=== PATIENT | male | born 2005 | race Caucasian/White ===

== ENCOUNTER 2025-03-18 14:18 | Emergency (ER) | payer OTHER ==
[2025-03-18 14:28] VITALS: BP 115/75; PULSE 61
[2025-03-18] MEDS: Diphtheria,Pertussis(Acell),Tetanus Vaccine 0.5 ML Syringe IM ONE (14:48)
== END 2025-03-18 15:53 | disposition home or self-care (01) ==
LOC: JD.ED 14:18
DX: S60.451A Superficial foreign body of left index finger, initial encounter (principal); F17.210 Nicotine dependence, cigarettes, uncomplicated; Z23 Encounter for immunization; W45.0XXA Nail entering through skin, initial encounter
CPT/HCPCS: 73140-26-F1; 73140-F1; 90471; 90715; 99283-25